=== PATIENT | female | born 2000 | race Asian ===

== ENCOUNTER 2021-10-02 10:20 | Inpatient (IN) | payer OTHER ==
[2021-10-02 11:54] LABS: BASO % 0.3 % (0-2.0); EOS % 2.6 % (0-4.5); HEMATOCRIT 33.7 % (32.4-45.2); LYMPH % 30.7 % (8-40); MCH 27.8 pg (25.7-33.7); MCHC 32.6 g/dl (32.0-36.0); MEAN CELL VOLUME 85.2 fl (80-96); MONO % 8.1 % (3.8-10.2); NEUT % 58.3 % (42.8-82.8); PLATELET COUNT 99 10^3/uL (134-434); RBC 3.95 M/mm3 (3.60-5.2); WHITE BLOOD COUNT 5.4 K/mm3 (4.0-10.0)
[2021-10-02 12:03] LABS: INR 0.85 (0.83-1.09); PROTHROMBIN TIME (PATIENT) 9.8 SEC (9.7-13.0)
[2021-10-02 12:06] LABS: ACTIVATED PTT 27.4 SECONDS (25.2-36.5)
[2021-10-02 12:15] LABS: CALCIUM 8.8 mg/dL (8.5-10.1)
[2021-10-02 12:16] LABS: BLOOD UREA NITROGEN 13.4 mg/dL (7-18)
[2021-10-02 12:19] LABS: CREATININE 0.7 mg/dL (0.55-1.3)
[2021-10-02 13:03] LABS: ANISOCYTOSIS 2+; MACROCYTOSIS 1+
[2021-10-02 13:53] VITALS: BMI 23.9
[2021-10-02] MEDS ORDERED: PROMETHAZINE HCL 25 MG/1 ML VIAL IVPUSH ONE (14:08)
[2021-10-02] MEDS ORDERED: BUTORPHANOL TARTRATE 1 MG/ML VIAL IVPUSH PRN (14:12)
[2021-10-02] MEDS ORDERED: DEXTROSE 5%-LACTATED RINGERS 1,000 ML IV SCH (14:15)
[2021-10-02 14:54] LABS: OPIATES, URI NEGATIVE (NEGATIVE); URINE BARBITURATES NEGATIVE (NEGATIVE)
[2021-10-02 14:56] LABS: METHADONE, UR NEGATIVE (NEGATIVE); PHENCYCLIDINE,URINE NEGATIVE (NEGATIVE); URINE BENZODIAZEPINES NEGATIVE (NEGATIVE)
[2021-10-02 15:02] LABS: COCAINE, UR NEGATIVE (NEGATIVE); URINE AMPHETAMINES NEGATIVE (NEGATIVE)
[2021-10-02] MEDS ORDERED: BUTORPHANOL TARTRATE 2 MG/ML VIAL ONE (16:19)
[2021-10-02] MEDS ORDERED: PROMETHAZINE HCL 25 MG/1 ML VIAL ONE (16:19)
[2021-10-02] MEDS ORDERED: BUTORPHANOL TARTRATE 2 MG/ML VIAL IVPB ONE (16:45)
[2021-10-02] MEDS ORDERED: PROMETHAZINE HCL 25 MG/1 ML VIAL IVPB ONE (16:45)
[2021-10-02] MEDS ORDERED: FENTANYL/BUPIVACAINE/NS/PF - PCEA - 50 ML DISP.SYRIN EP ONE (21:17)
[2021-10-02] MEDS ORDERED: BUPIVACAINE HCL/PF 0.25% (2.5MG/ML) 10 ML VIAL ONE (21:36)
[2021-10-02] MEDS ORDERED: ELECTROLYTE-148 SOLN 500 ML IV SCH ×2 (21:45→22:00)
[2021-10-02] MEDS: FENTANYL/BUPIVACAINE/NS/PF - PCEA - 50 ML DISP.SYRIN EP SCH (21:45)
[2021-10-02] MEDS ORDERED: NALOXONE HCL 0.4 MG/ML VIAL IVPUSH PRN (22:03)
[2021-10-03] MEDS: ELECTROLYTE-148 SOLN 1,000 ML IV SCH ×2 (01:10→06:05)
[2021-10-03] MEDS ORDERED: FENTANYL/BUPIVACAINE/NS/PF - PCEA - 50 ML DISP.SYRIN EP ONE ×3 (01:42→06:15)
[2021-10-03] MEDS: FENTANYL/BUPIVACAINE/NS/PF - PCEA - 50 ML DISP.SYRIN EP SCH ×2 (03:00→06:15)
[2021-10-03] MEDS ORDERED: BUPIVACAINE HCL/PF 0.25% (2.5MG/ML) 10 ML VIAL ONE (03:48)
[2021-10-03] MEDS ORDERED: LIDOCAINE HCL 1% PRESERVATIVE FREE - 30ML VIAL ONE (07:13)
[2021-10-03] MEDS ORDERED: OXYTOCIN 20 UNITS in 0.9% NS 20 UNIT/1,000 ML INFUS.BAG IV ONE ×2 (07:14→11:52)
[2021-10-03] MEDS ORDERED: WITCH HAZEL 50% (TUCKS) 40 PAD/JAR PAD TP PRN (10:14)
[2021-10-03] MEDS ORDERED: METHYLERGONOVINE MALEATE 0.2 MG/1 ML AMP IM PRN (10:14)
[2021-10-03] MEDS ORDERED: ACETAMINOPHEN 325 MG TABLET (FP) PO PRN (10:14)
[2021-10-03] MEDS ORDERED: oxyCODONE HCL 5 MG TABLET PO PRN (10:14)
[2021-10-03] MEDS ORDERED: BENZOCAINE 28 GM HEMORRHOIDAL OINTMENT TP PRN (10:14)
[2021-10-03] MEDS ORDERED: BENZOCAINE 20% 57 GM BOTTLE TP PRN (10:14)
[2021-10-03] MEDS ORDERED: BISACODYL 10 MG SUPP.RECT RC PRN (10:14)
[2021-10-03] MEDS ORDERED: OXYTOCIN 20 UNITS in 0.9% NS 20 UNIT/1,000 ML INFUS.BAG IV SCH (10:15)
[2021-10-03 10:34] LABS: CORD BASE EXCESS -10.1 mmol/L (0-2); CORD HCO3 15.9 mmHg (20-29); CORD PCO2 35.5 mmHg (30-78); CORD pH 7.269 (7.14-7.44)
[2021-10-03 10:36] LABS: CORD HCO3 16.1 mmHg (20-29); CORD PCO2 43.4 mmHg (30-78); CORD pH 7.186 (7.14-7.44)
[2021-10-03] MEDS: IBUPROFEN 600 MG TABLET (FP) PO PRN ×3 (11:30→20:31)
[2021-10-03] MEDS ORDERED: IBUPROFEN 600 MG TABLET (FP) PO ONE (11:39)
[2021-10-04] MEDS: IBUPROFEN 600 MG TABLET (FP) PO PRN ×5 (03:17→20:51)
[2021-10-04 08:11] LABS: BASO % 0.2 % (0-2.0); EOS % 0.2 % (0-4.5); HEMATOCRIT 26.8 % (32.4-45.2); HEMOGLOBIN 8.8 GM/dL (10.7-15.3); LYMPH % 18.4 % (8-40); MCH 28.6 pg (25.7-33.7); MCHC 32.9 g/dl (32.0-36.0); MEAN CELL VOLUME 86.8 fl (80-96); MEAN PLT VOLUME 9.8 fl (7.5-11.1); MONO % 4.9 % (3.8-10.2); NEUT % 76.3 % (42.8-82.8); PLATELET COUNT 77 10^3/uL (134-434); RBC 3.09 M/mm3 (3.60-5.2); RDW 25.8 % (11.6-15.6); WHITE BLOOD COUNT 12.6 K/mm3 (4.0-10.0)
[2021-10-04] MEDS ORDERED: SENNOSIDES/DOCUSATE COMBO (SENNA PLUS) TABLET (UD) PO PRN (22:00)
[2021-10-05] MEDS: IBUPROFEN 600 MG TABLET (FP) PO PRN ×2 (04:32→08:35)
[2021-10-05 08:44] LABS: BASO % 0.2 % (0-2.0); EOS % 0.3 % (0-4.5); HEMATOCRIT 26.2 % (32.4-45.2); HEMOGLOBIN 8.8 GM/dL (10.7-15.3); LYMPH % 20.2 % (8-40); MCH 28.6 pg (25.7-33.7); MCHC 33.5 g/dl (32.0-36.0); MEAN CELL VOLUME 85.6 fl (80-96); MEAN PLT VOLUME 9.8 fl (7.5-11.1); NEUT % 74.3 % (42.8-82.8); PLATELET COUNT 80 10^3/uL (134-434); RBC 3.06 M/mm3 (3.60-5.2); WHITE BLOOD COUNT 8.5 K/mm3 (4.0-10.0)
[2021-10-05 11:27] VITALS: BP 112/81; PULSE 80; TEMP 98.5
== END 2021-10-05 12:05 | disposition home or self-care (01) | DRG 560 ==
LOC: JDEL 10:20 → JLDR 12:55 → J3W 10-03 12:30
PROVIDERS: ADMIT Obstetrics & Gynecology; ATTEND Obstetrics & Gynecology
PROC: 10E0XZZ Delivery of Products of Conception, External Approach (ICD-10-PCS; principal; 2021-10-03)
PROC: 0W8NXZZ Division of Female Perineum, External Approach (ICD-10-PCS; 2021-10-03)
DX: O48.0 Post-term pregnancy (principal); O99.12 Other diseases of the blood and blood-forming organs and certain disorders involving the immune mechanism complicating childbirth; D69.6 Thrombocytopenia, unspecified; Z3A.40 40 weeks gestation of pregnancy; Z37.0 Single live birth
CPT/HCPCS: 36415; 36600; 59409; 80048; 80307; 82803; 85025; 85610; 85730; 86780; 86850; 86900; 86901; C9803-CS; U0003; U0005